=== PATIENT | female | born 1935 | race Caucasian/White ===

== ENCOUNTER 2020-01-22 21:47 | Emergency (ER) | payer MEDICARE, SELFPAY ==
--- NOTE | ~2020-01-22 | CT_ITS ---
EXAMINATION: CT brain wo con EXAM DATE: 01/22/2020 22:55 INDICATION: Dementia. Confusion. Hallucinations. TECHNIQUE: Spiral CT of the head was performed without contrast. Axial, coronal and sagittal images were reviewed. The dose-length product (DLP) for this examination was 605.33 mGy-cm. The exposure w as tailored according to patient size, and iterative reconstruction (ASIR) was used as additional dos e reduction technique. Comparison is made to prior examination from 12/29/2017. FINDINGS: There is no acute intraparenchymal hemorrhage. No evidence of intraparenchymal brain mass lesion. No evidence of acute infarction. Please note that initial head CT has limited sensitivity f or small or acute infarctions. There is mild periventricular and subcortical hypodensity, nonspecific but probably related to small vessel ischemic disease. There is moderate prominence of the sulci a nd ventricles related to cerebral atrophy. There is intracranial carotid arteriosclerosis. There a re no extra-axial collections. There is no mass effect or midline shift. Patient has had bilateral ocular lens surgery. Soft tissue is unremarkable. The visualized sinuses and mastoid air cells are well aerated. IMPRESSION: 1. No acute intracranial findings. 2. Chronic age related findings. Reviewed, dictated and finalized at location A. OM CAR BUILDER
[2020-01-22 22:14] VITALS: BP 165/103; PULSE 72; RESP 18; TEMP 36.3; O2SAT 98
--- NOTE | 2020-01-22 22:19 | ECG_ITS ---
Measurements Intervals [place] Rate: 72 P: 67 NV: 174 QRS: -17 QRSD: 93 T: -9 QT: 379 QTc: 416 Interpretive Statements SINUS RHYTHM INFERIOR INFARCT, AGE INDETERMINATE BASELINE ARTIFACT- I, II, AVR, V3, V5-V6 ABNORMAL ECG Electronically Signed On 01-23-2020 6:46:08 STOCK CONTROL SUPERVISOR by Christophe Higuera D.O.
[2020-01-22 22:29] LABS: Basophils Absolute Auto 0.1 K/mm3 (0.0-0.1); Basophils Percent Auto 1.1 % (0.2-1.2); Eosinophils Absolute Auto 0.3 K/mm3 (0-0.3); Eosinophils Percent Auto 5.8 % (0-4.4); Hematocrit 39.1 % (37.0-47.0); Hemoglobin 12.6 g/dL (12.0-15.0); Immature Granulocyte Absolute 0.01 K/mm3 (0.00-0.031); Immature Granulocyte Percent A 0.2 % (0-0.5); Lymphocytes Absolute Auto 1.42 K/mm3 (0.9-3.2); Lymphocytes Percent Auto 25.5 % (18.3-44.2); Mean Corpuscular HGB Conc 32.2 g/dl (32-36); Mean Corpuscular Hemoglobin 29.1 pg (26-34); Mean Corpuscular Volume 90.3 fl (80-100); Mean Platelet Volume 9.6 fl (7.4-10.4); Monocytes Absolute Auto 0.5 K/mm3 (0.1-0.6); Monocytes Percent Auto 8.6 % (2.6-8.5); Neutrophils Absolute Auto 3.3 K/mm3 (1.3-6.7); Neutrophils Percent Auto 58.8 % (45.5-73.1); Platelet Count Result 261 k/mm3 (150-375); Red Blood Count 4.33 M/mm3 (4.2-5.4); Red Cell Distribution Width 13.3 % (11.5-14.5); White Blood Count 5.6 K/mm3 (4.5-10.0)
--- NOTE | 2020-01-22 22:38 | ED.AMS ---
HPI - Altered Mental Status General Chief Complaint: Altered Mental Status Stated Complaint: dementia Time Seen by Provider: 01/22/20 22:34 Source: patient, family (pt's son) and RN notes reviewed Mode of arrival: ambulatory Limitations: dementia History of Present Illness HPI narrative: Pt is a 84 y/o female with a Hx of dementia, who presents to the ED with c/o altered mental status starting this evening. According to the pt's son, she has a Hx of similar symptoms accompanying a UTI roughly 1 year ago. He notes that his mother began hallucinating this evening, stating that she began hearing things coming from her attic that weren't there. Pt's son also notes that the pt called him stating that her house had been broken into, but states that no one had in fact entered her home. She notes that she is unsure why she is here. Pt does report recent dysuria and chronic bilateral leg pain, but denies any CP, ABD pain, fever, nausea, or vomiting. She states that she hasn't had any recent falls. HPI limited due to pt's dementia. MD complaint: altered mental status Timing confirmed by: family member Severity: similar to previous episodes Context: history of similar presentation Associated symptoms: other (dysuria; bilateral leg pain (chronic); auditory hallucinations (per son); delusions (per son)) Related Data Home Medications Medication Instructions Recorded Confirmed carvedilol 01/22/20 Allergies Allergy/AdvReac Type Severity Reaction Status Date / Time No Known Allergies Allergy Unverified 01/22/20 22:58 Review of Systems Review of Systems: Narrative: ROS limited due to pt's dementia. Constitutional: Constitutional: Denies fever(s) Cardiovascular: Cardiovascular: Denies chest pain Gastrointestinal: Gastrointestinal: Denies abdominal pain, Denies nausea and Denies vomiting Genitourinary: Genitourinary: Reports dysuria Musculoskeletal: Musculoskeletal: Reports other (bilateral leg pain (chronic)) Psychiatric: Psychiatric: Reports hallucinations (auditory hallucinations (per son)) and Reports other (delusions (per son)) [facility] Past Medical History Medical History Anxiety Back pain Dementia Depression Hemorrhoids HTN (hypertension) Spinal stenosis UTI (urinary tract infection) Surgical History Surgical History History of hip replacement rt hip History of hysterectomy Family History Family History (Updated 01/07/16 @ 12:12 by DOCTOR UNKNOWN) Mother Hypertension Family history of heart disease in male family member before age 55 Patient's mother is Father Hypertension Family history of lung cancer Family history of heart disease in male family member before age 55 Patient's father is Family history of malignant neoplasm Sibling Family history of heart disease in male family member before age 55 Patient's sister is Family history of malignant neoplasm Patient's brother is Social History Social History Smoking status: Never smoker Alcohol intake: current Exam Narrative: Exam Narrative: GENERAL: Well-appearing, well-nourished, and in no acute distress. HEAD: Normocephalic, atraumatic EYES: PERRLA and EOMI, conjunctiva clear without discharge THROAT:Mucous membranes moist, Oropharynx normal without erythema, exudate, peritonsillar swelling or fluctuance NECK: Supple, without lymphadenopathy or mass RESPIRATORY: No respiratory distress, Airway patent, Respirations non-labored, Clear to auscultation without rales, rhonchi or wheeze HEART: Regular rate and rhythm. No murmur heard. Normal peripheral pulses. ABDOMEN: Soft, nontender, nondistended, normal active bowel sounds. No masses. No rebound or guarding, No organomegaly. EXTREMITIES: No edema, normal strength with full range of motion.
[2020-01-22 22:42] LABS: Alanine Aminotransferase 8 U/L (4-35); Albumin Level 4.4 g/dL (3.5-5.1); Alkaline Phosphatase 79 U/L (38-126); Aspartate Amino Transferase 18 U/L (14-36); Bilirubin,Total 0.7 mg/dL (0.2-1.3); Blood Urea Nitrogen 17 mg/dL (7-17); Calcium 9.3 mg/dL (8.4-10.2); Carbon Dioxide 22 mmol/L (22-30); Chloride 98 mmol/L (98-107); Estimated CRCL calculation 24 ml/min; Estimated Glomerular Filt Rate 47; Glucose 109 mg/dL (65-105); Potassium 4.2 mmol/L (3.4-5.0); Sodium 135 mmol/L (137-145)
[2020-01-22 23:00] VITALS: BP 214/90; PULSE 71; RESP 19; O2SAT 100
[2020-01-22 23:45] VITALS: BP 199/88; PULSE 71; RESP 21; O2SAT 99
[2020-01-22 23:45] LABS: Add Urine Microscopic? YES; Appearance Urine Clear (Clear); Bilirubin Urine Negative (Negative); Blood Urine 1+ (Negative); Color Urine Yellow (Yellow); Glucose Urine UA Negative (Negative); Ketones Urine Negative (Negative); Leukocyte Esterase Ur Negative LEU/UL (Negative); Mucus Urine Rare /lpf; Nitrate Urine Negative (Negative); Protein Urine Negative (Negative); Specific Grav Ur 1.017 (1.001-1.035); Squamous Epithelial Cell Urine Rare /hpf (Few); Urobilinogen Urine Negative mg/dL (<2.0); WBC Urine 0-3 /hpf
[2020-01-23 00:29] VITALS: BP 206/89; PULSE 79; RESP 21; TEMP 36.4; O2SAT 100
[2020-01-23 01:30] VITALS: BP 153/93; PULSE 83; RESP 15; O2SAT 97
== END 2020-01-23 01:30 | disposition home or self-care (01) ==
PROVIDERS: Emergency Medicine; Emergency Provider General Practice; PCP Internal Medicine
DX: F03.90 Unspecified dementia, unspecified severity, without behavioral disturbance, psychotic disturbance, mood disturbance, and anxiety (principal); F41.9 Anxiety disorder, unspecified; F32.9 Major depressive disorder, single episode, unspecified; I10 Essential (primary) hypertension
CPT/HCPCS: 36415; 51701; 70450; 80053; 81001; 85025; 93005; 99284

== ENCOUNTER 2020-12-16 08:32 | Outpatient (CLI) | payer MEDICARE, SELFPAY ==
--- NOTE | ~2020-12-16 | XR_ITS ---
EXAMINATION: XR UGI w barium swallow EXAM DATE: 12/16/2020 09:29 INDICATION: R11.10 - Vomiting, unspecified. TECHNIQUE: Limited single contrast upper GI examination was performed in standing position with thick barium. Double contrast exam was attempted but patient declined swallowing effervescent crystals. T he DAP for this procedure was 0.7 Gycm2. There is no prior study for comparison. FINDINGS: There is no esophageal stricture, diverticulum or mass identified. Small sliding gastroesop hageal hiatal hernia. The stomach has a normal appearance without evidence of mass lesion, ulceratio n or filling defect. There is normal rugal fold pattern. The duodenum and duodenal sweep are normal in appearance. IMPRESSION: Small sliding gastroesophageal hiatal hernia. Reviewed, dictated and finalized at location A. BEAM FITTER
[2020-12-16 10:14] LABS: Alanine Aminotransferase 7 U/L (4-35); Albumin Level 3.4 g/dL (3.5-5.1); Alkaline Phosphatase 74 U/L (38-126); Anion Gap 2 mmol/L (8-16); Aspartate Amino Transferase 16 U/L (14-36); Bilirubin,Total 0.5 mg/dL (0.2-1.3); Blood Urea Nitrogen 10 mg/dL (7-17); Calcium 8.6 mg/dL (8.4-10.2); Carbon Dioxide 31 mmol/L (22-30); Chloride 103 mmol/L (98-107); Estimated Glomerular Filt Rate 53; Glucose 96 mg/dL (65-105); Potassium 4.1 mmol/L (3.4-5.0); Sodium 136 mmol/L (137-145)
== END 2020-12-16 08:33 | disposition home or self-care (01) ==
PROVIDERS: Family Provider Internal Medicine; PCP Internal Medicine; Visit Provider Internal Medicine
DX: R11.10 Vomiting, unspecified (principal); I10 Essential (primary) hypertension; K21.9 Gastro-esophageal reflux disease without esophagitis
CPT/HCPCS: 36415; 74240; 80053

== ENCOUNTER → 2021-05-13 09:36 | Outpatient (CLI) | payer MEDICARE, SELFPAY ==
--- NOTE | ~2021-05-13 | XR_ITS ---
EXAMINATION: XR chest 2V 05/13/2021 10:54 INDICATION: Essential hypertension PROCEDURE: 2 view chest COMPARISON: Comparison to multiple prior studies sequentially, with oldest reviewed study dated 06/2017. FINDINGS: The lungs are clear. The cardiomediastinal silhouette is within normal limits. There are no pleural effusions. There is no pneumothorax suspected. There are calcified granulomas in the rig ht lower lung zone. IMPRESSION: 1: NO ACUTE CARDIOPULMONARY DISEASE. Reviewed, dictated and finalized at location B.
--- NOTE | ~2021-05-13 | XR_ITS ---
EXAMINATION: XR tibia fibula LT 2V INDICATION: Left knee pain TECHNIQUE: Two views of the left tibia and fibula are obtained. COMPARISON: 05/27/2017 FINDINGS: There is advanced osteoarthritis of the medial compartment of the knee. No fracture is iden tified. Alignment at the ankle appears normal. There is calcified atherosclerosis. IMPRESSION: 1. No acute osseous abnormality. Reviewed, dictated and finalized at location A.
--- NOTE | ~2021-05-13 | XR_ITS ---
EXAMINATION: XR knee LT 3V DATE: 05/13/2021 10:54 INDICATION: Left knee pain TECHNIQUE: Three views of the left knee were obtained. COMPARISON: 05/27/2017 FINDINGS: There is severe osteoarthritis with interval worsening in the medial compartment. Moderate patellofemoral compartment osteoarthritis is present. No erosions are identified. No joint effusion/s ynovitis. There is no fracture. Calcified atherosclerosis is noted. IMPRESSION: 1. Interval worsening of severe osteoarthritis of the medial compartment. Reviewed, dictated and finalized at location A.
== END ==
PROVIDERS: PCP Internal Medicine; Visit Provider Internal Medicine
DX: M17.12 Unilateral primary osteoarthritis, left knee (principal); I10 Essential (primary) hypertension
CPT/HCPCS: 71046; 73562; 73590

== ENCOUNTER 2021-07-06 14:48 | Observation (INO) | payer MEDICARE, SELFPAY ==
--- NOTE | ~2021-07-06 | XR_ITS ---
MODIFIED ESOPHAGRAM HISTORY: Difficulty swallowing TECHNIQUE: Modified barium esophagram was performed by speech pathologist under radiologist fluorosco pic guidance. This was recorded on tape. The exam was reviewed on 07/07/2021 14:25 CDT. The DAP for this procedure was 1.06 Gycm2. Fluoroscopy time is 1.4 minutes. FINDINGS: Lateral projection of the cervical spine demonstrates normal alignment. There is delayed swallow with spillover of all consistencies into the vallecula. Reduced tongue base retraction. No ev idence for penetration or aspiration. IMPRESSION: 1: No evidence for laryngeal penetration or aspiration. 2: Please refer to speech pathologist report for additional detail. Reviewed, dictated and finalized at location A.
--- NOTE | ~2021-07-06 | CT_ITS ---
EXAMINATION: CT brain wo con DATE: 07/06/2021 22:15 INDICATION: Confusion, altered mental status. History of dementia. Patient is now nonverbal which is not normal according to the patient's son. TECHNIQUE: Computed tomography (CT) of the head was performed without intravenous contrast. The mA wa s adjusted according to patient size. Iterative reconstruction technique was employed. Exam dose: 52 9.67 mGy-cm total exam DLP. COMPARISON: 01/22/2020 CT brain FINDINGS: The examination is limited by motion and left hearing aid artifact. No intracranial mass lesion or hemorrhage, midline shift or mass effect or subdural or epidural hemat amish or other acute intracranial finding is noted. There is central and cortical cerebral and cerebellar atrophy. There is nonspecific diminished attenu ation of cerebral white matter, likely due to chronic small vessel ischemic changes. There are promin ent bilateral carotid siphon internal carotid artery calcifications. No fracture or bone destruction of the cranial vault. The mastoid air cells and included paranasal sinuses are unremarkable. IMPRESSION: No acute intracranial finding or significant change since 01/22/2020 is noted Reviewed, dictated and finalized at Location A. Reviewed, dictated and finalized at location A.
--- NOTE | ~2021-07-06 | XR_ITS ---
XR chest 1V portable DATE: 07/06/2021 18:16 INDICATION: Transient alteration of awareness TECHNIQUE: Portable upright AP chest on 07/06/2021 1807 hours COMPARISON: 05/13/2021 PA and lateral chest FINDINGS: Cardiac megaly. Aortic calcification and unfolding. No hilar or mediastinal enlargement is evident on this rightward rotated single portable AP view ches t radiograph. No pulmonary infiltrate or consolidation, pleural effusion or pulmonary vascular congestion or pneumo thorax is evident. Diffuse osteopenia. IMPRESSION: Cardiomegaly, aortic atherosclerosis Diffuse osteopenia No active pulmonary disease Reviewed, dictated and finalized at location A.
--- NOTE | ~2021-07-06 | CT_ITS ---
EXAMINATION: CT abdomen pelvis wo con DATE: 07/07/2021 13:34 INDICATION: Abdominal pain. TECHNIQUE: Computed tomography (CT) of the abdomen and pelvis was performed without intravenous contr ast. Automated exposure control and iterative reconstruction technique were employed. The dose-length product was 978.73 mGy-cm. COMPARISON: CT abdomen and pelvis 12/29/2017 FINDINGS: The visualized portions of the lung bases demonstrate mild atelectasis. No pleural effusion . Cardiomegaly is noted. There are coronary artery calcifications. There are calcifications of aortic valve. No pericardial effusion. Calcifications in the spleen are consistent with old granulomatous d isease. There is diffuse hepatic steatosis. There are gallstones in the gallbladder, which is normal in size. The pancreas, adrenal glands, and kidneys are normal. There is diverticulosis of the colon w ithout evidence of diverticulitis. The appendix is normal. There are no dilated loops of bowel. There are no pathologically enlarged lymph nodes. There is no free intraperitoneal fluid. There is a total right hip arthroplasty. There is severe left hip osteoarthritis. There is severe lumbar spondylosis. IMPRESSION: 1. Cholelithiasis. No evidence of acute cholecystitis. 2. Diffuse hepatic steatosis. Reviewed, dictated and finalized at location B.
--- NOTE | ~2021-07-06 | XR_ITS ---
EXAMINATION: XR hip BI 2V w AP pelvis DATE: 07/07/2021 13:53 INDICATION: Pelvic pain. TECHNIQUE: An anteroposterior view of the pelvis, 2 views of right hip, and 2 views of left hip were obtained. COMPARISON: Pelvis and right knee radiographs 06/27/2007, CT abdomen and pelvis 07/07/2021 FINDINGS: There is a total right hip arthroplasty in near-anatomic alignment. No fracture. No peripro sthetic lucency to suggest loosening or infection. There is severe left hip osteoarthritis. There is severe lumbar spondylosis. IMPRESSION: 1. Total right hip arthroplasty in near-anatomic alignment. 2. Severe left hip osteoarthritis. Reviewed, dictated and finalized at location B.
[2021-07-06 14:50] VITALS: BP 143/69; PULSE 72; RESP 16; TEMP 36.7; O2SAT 95
--- NOTE | 2021-07-06 14:57 | ECG_ITS ---
Measurements Intervals [place] Rate: 65 P: -30 RI: 141 QRS: -3 QRSD: 90 T: 3 QT: 413 QTc: 430 Interpretive Statements SINUS RHYTHM WITH SINUS ARRHYTHMIA BORDERLINE R WAVE PROGRESSION, ANTERIOR LEADS INFERIOR INFARCT, AGE INDETERMINATE BORDERLINE ST ABNORMALITY- HIGH LATERAL LEADS BASELINE ARTIFACT- I, II, AVR ABNORMAL ECG Electronically Signed On 07-06-2021 15:07:34 CDT by Christophe Higuera D.O.
[2021-07-06 15:23] LABS: Basophils Percent Auto 0.5 % (0.2-1.2); Eosinophils Absolute Auto 0.2 K/mm3 (0-0.3); Eosinophils Percent Auto 3.7 % (0-4.4); Hematocrit 37.8 % (37.0-47.0); Hemoglobin 11.9 g/dL (12.0-15.0); Immature Granulocyte Absolute 0.01 K/mm3 (0.00-0.031); Immature Granulocyte Percent A 0.2 % (0-0.5); Lymphocytes Absolute Auto 1.15 K/mm3 (0.9-3.2); Lymphocytes Percent Auto 20.1 % (18.3-44.2); Mean Corpuscular HGB Conc 31.5 g/dl (32-36); Mean Corpuscular Hemoglobin 28.7 pg (26-34); Mean Corpuscular Volume 91.3 fl (80-100); Mean Platelet Volume 10.8 fl (7.4-10.4); Monocytes Absolute Auto 0.8 K/mm3 (0.1-0.6); Monocytes Percent Auto 13.8 % (2.6-8.5); Neutrophils Absolute Auto 3.5 K/mm3 (1.3-6.7); Neutrophils Percent Auto 61.7 % (45.5-73.1); Platelet Count Result 205 k/mm3 (150-375); Red Blood Count 4.14 M/mm3 (4.2-5.4); White Blood Count 5.7 K/mm3 (4.5-10.0)
[2021-07-06 15:35] LABS: Alanine Aminotransferase 10 U/L (4-35); Albumin Level 3.6 g/dL (3.5-5.1); Alkaline Phosphatase 86 U/L (38-126); Anion Gap 5 mmol/L (8-16); Aspartate Amino Transferase 16 U/L (14-36); Bilirubin,Total 0.8 mg/dL (0.2-1.3); Blood Urea Nitrogen 16 mg/dL (7-17); Calcium 9.2 mg/dL (8.4-10.2); Carbon Dioxide 27 mmol/L (22-30); Chloride 104 mmol/L (98-107); Estimated Glomerular Filt Rate 59; Glucose 101 mg/dL (65-110); Sodium 136 mmol/L (137-145)
[2021-07-06 18:39] VITALS: BP 174/105; PULSE 82; RESP 20; TEMP 36.9; O2SAT 98
--- NOTE | 2021-07-06 18:59 | ED.GENADULT ---
HPI - General Adult General Chief complaint: Altered Mental Status Stated complaint: Increased Confusion,not eating,abd pain Time Seen by Provider: 07/06/21 18:01 Source: patient and family History of Present Illness HPI narrative: Patient is a 85 y/o female brought in by son for altered mental status. Son states that patient has been more confused for last 1-2 days. She has history of dementia. There is no known alleviating or exacerbating factor. Patient does not know why she is here and has no complaint. She is poor historian. Son states that he has been out of town for 1 week and she appears worse than before he left. He just came back in town. Patient has some caretakers that helps her at home. Related Data Home Medications Medication Instructions Recorded Confirmed melatonin 10 mg capsule 10 mg PO .QHS cap 08/12/20 07/07/21 buspirone 5 mg TID 07/06/21 07/07/21 lisinopril 10 mg PO DAILY 07/06/21 07/07/21 Azo Cranberry 125 mg PO DAILY 07/07/21 07/07/21 acetaminophen [Tylenol] 650 mg PO TID 07/07/21 07/07/21 trazodone 50 mg PO HS 07/07/21 07/07/21 Allergies Allergy/AdvReac Type Severity Reaction Status Date / Time No Known Allergies Allergy Verified 07/06/21 18:13 Review of Systems Review of Systems: ROS unobtainable: Yes unobtainable due to mental status PMFSH Past Medical History Medical History Anxiety Back pain Depression Hemorrhoids HTN (hypertension) Other chronic pain Overweight (05/24/16) Primary osteoarthritis of both knees Spinal stenosis UTI (urinary tract infection) Surgical History Surgical History History of hip replacement rt hip History of hysterectomy Family History Family History Mother Hypertension Family history of heart disease in male family member before age 55 Patient's mother is Father Hypertension Family history of lung cancer Family history of heart disease in male family member before age 55 Patient's father is Family history of malignant neoplasm Sibling Family history of heart disease in male family member before age 55 Patient's sister is Family history of malignant neoplasm Patient's brother is Social History Social History Smoking status: Never smoker Second hand tobacco smoke exposure: No Alcohol intake: former Substance use: never Gender identity (if verbalized by the patient): Female Spiritual care concerns: No Exam Const: General: no acute distress and well developed Orientation/consciousness: oriented to person and confusion HENMT: Head: normocephalic Ears: external ears normal General nose exam: Normal external nose present Eyes: General: appearance normal, both eyes and all related structures Conjunctivae: conjunctivae normal Neck: Neck: normal visual inspection and full ROM Chest: Chest palpation & inspection: normal inspection of the chest and no tenderness Resp: Effort & Inspection: normal respiratory effort Auscultation: clear to auscultation bilaterally Cardio: Rate: regular rate Rhythm: regular rhythm GI: GI Palp: No abdominal tenderness and Yes Soft to palpation Skin: General skin exam: normal color and turgor normal Neuro: General: oriented to person and confusion Cognition (Neuro): normal cognition Extrem: General: normal to inspection, full ROM and no pedal edema Psych: Appearance: grossly normal Mental Status: mental status grossly normal Affect: normal affect Course Reevaluation(s) Reevaluation #1: Patient care is transferred to Dr. Santos pending CT result and re-evaluation. Date: 07/06/21 Time: 21:22 Vital Signs Vital signs: Vital Signs Temperature 36.7 C 07/06/21 14:50 Pulse Rate 72 07/06/21 14:50 Respiratory Rate 16 07/06/21 14:50 B
[2021-07-06 20:01] LABS: Add Urine Microscopic? YES; Appearance Urine Clear (Clear); Bacteria Urine Trace /hpf; Bilirubin Urine Negative (Negative); Blood Urine Negative (Negative); Color Urine Yellow (Yellow); Glucose Urine UA Negative (Negative); Ketones Urine 1+ mg/dL (Negative); Leukocyte Esterase Ur Negative LEU/UL (Negative); Mucus Urine Heavy /lpf; Nitrate Urine Negative (Negative); Protein Urine 1+ mg/dL (Negative); RBC Urine 0-2 /hpf (0-2); Specific Grav Ur 1.027 (1.001-1.035); Squamous Epithelial Cell Urine Rare /hpf (Few); WBC Urine 0-3 /hpf
--- NOTE | 2021-07-06 20:10 | PC.NURSE ---
Multiple attempts made to assist pt to void without success. Straight cath completed with assist of 3 persons. Son aware of plan of care and orders.
[2021-07-06] MEDS: HALOPERIDOL LACTATE 5 MG/ML VIAL 2 MG IM (20:25)
--- NOTE | 2021-07-06 20:59 | PC.NURSE ---
Multiple attempts to assist pt to stretcher, unable to comprehend. Will sit for brief period then will stand up at bedside. Son with pt assisting with positioning.
[2021-07-06] MEDS: LORazepam INJ (*CRX) 2 MG/ML VIAL 1 MG IM (21:26)
[2021-07-06 23:38] VITALS: BP 161/87; PULSE 67; RESP 17; O2SAT 99
--- NOTE | 2021-07-06 23:39 | PC.NURSE ---
Assumed care of pt, pt is alert on stretcher and upright, pt placed in hospital gown, IV placed. Pt placed on bed alarm. VSS. Discussed POC.
--- NOTE | 2021-07-07 00:12 | PM.IMHP ---
H&P: HPI History of Present Illness Date/Time: 07/07/21 00:12 Chief Complaint: Altered mental status Narrative: This is an 85-year-old female with past medical history significant for dementia generalized anxiety back pain hypertension spinal stenosis degenerative joint disease patient lives at home by herself she has a caregiver that comes from a.m. to 8:00 p.m. in the day and the son comes around to check in on a daily basis. According to son the patient has been doing okay but he has noticed a progressive decline of overall function and worsening of her dementia. He was out of town away for a 1 week and she has not been taking her medications. He brings her in due to altered mental status she is not her usual. Preliminary workup has been essentially nonrevealing. Son states that he would like for her mom to be placed at a alf. Review of Systems Review of Systems: ROS unobtainable: Yes unobtainable due to medical condition (Advanced dementia) PMFSH Past Medical History Medical History Anxiety Back pain Depression Hemorrhoids HTN (hypertension) Other chronic pain Overweight (05/24/16) Primary osteoarthritis of both knees Spinal stenosis UTI (urinary tract infection) Surgical History Surgical History History of hip replacement rt hip History of hysterectomy Family History Family History Mother Hypertension Family history of heart disease in male family member before age 55 Patient's mother is Father Hypertension Family history of lung cancer Family history of heart disease in male family member before age 55 Patient's father is Family history of malignant neoplasm Sibling Family history of heart disease in male family member before age 55 Patient's sister is Family history of malignant neoplasm Patient's brother is Social History Social History Smoking status: Never smoker Second hand tobacco smoke exposure: No Alcohol intake: former Substance use: never Gender identity (if verbalized by the patient): Female Spiritual care concerns: No Meds Home Medications and Allergies Home Medications Medication Instructions Recorded Confirmed Type melatonin 10 mg capsule 10 mg PO .QHS cap 08/12/20 05/27/21 History risperidone 1 mg tablet 1 mg PO DAILY #30 tablet 03/19/21 05/27/21 Rx famotidine 40 mg tablet 40 mg PO DAILY #90 tablet 05/04/21 05/27/21 Rx carvedilol 3.125 mg tablet 3.125 mg PO Q12H #180 tablet 06/21/21 Rx buspirone 5 mg TID 07/06/21 History lisinopril 10 mg PO DAILY 07/06/21 History Azo Cranberry 125 mg PO DAILY 07/07/21 07/07/21 History acetaminophen [Tylenol] 650 mg PO TID 07/07/21 07/07/21 History trazodone 50 mg PO HS 07/07/21 07/07/21 History Allergies Allergy/AdvReac Type Severity Reaction Status Date / Time No Known Allergies Allergy Verified 07/06/21 18:13 Vital Signs Vital Signs - 24 hr 07/06/21 14:50 07/06/21 18:39 07/06/21 23:38 Temperature 98.1 F 98.5 F Pulse Rate 72 82 67 Respiratory Rate 16 20 17 Blood Pressure 143/69 H 174/105 H 161/87 H Pulse Oximetry 95 98 99 Exam Narrative: Laying in [facility] Const: General: comfortable, no acute distress, well developed, alert and tired appearing Nutritional Appearance: average body habitus HENMT: Head: normal to inspection, normocephalic and atraumatic Ears: hearing grossly normal bilaterally General nose exam: Normal external nose present Face and sinus: normal facial exam Mouth: Yes Normal oral and palatal mucosa present Eyes: General: appearance normal, both eyes and all related structures Alignment and Position: alignment normal Sclera: sclerae normal Pupils: Equal, round and reactive pupils present EOM: EOMs intact bilaterally Neck: N
[2021-07-07 00:30] VITALS: BP 148/74; BP 175/88; PULSE 61; PULSE 79; RESP 17; RESP 21; TEMP 36.5; O2SAT 97; O2SAT 99; BMI 27.6
--- NOTE | 2021-07-07 00:36 | ADMGEN ---
This patient, Annabelle Richards, was admitted to [facility] Surg Room 305-02. Patient/family oriented to hospital policies and general routines including ID bracelet, bed and alarms, visiting hours, pain management, procedures, bathroom and other care routines, personal items, smoking policy, room service/diet, and visiting hours. Information on how to activate the Rapid Response Team has been discussed. Patient/Family are encouraged to report perceived risks to care and to ask questions if they do not understand what they are told or what they should do.
[2021-07-07 05:16] VITALS: BP 160/92; PULSE 71; RESP 17; TEMP 36.4; O2SAT 90
[2021-07-07] MEDS: SODIUM CHLORIDE 0.9% IV 1,000 ML 125 ML IV CONT (06:00)
[2021-07-07] MEDS: FAMOTIDINE 20 MG TABLET 40 MG PO (09:26)
[2021-07-07] MEDS: OLANZapine 10 MG INJ VIAL 2.5 MG IM ×2 (10:43→21:11)
[2021-07-07 11:43] VITALS: BMI 27.6
--- NOTE | 2021-07-07 11:51 | PM.IMPN ---
Progress Note: A&P Assessment and Plan (1) Late onset Alzheimer's disease with behavioral disturbance: Code(s): G30.1 - Alzheimer's disease with late onset; F02.81 - Dementia in other diseases classified elsewhere with behavioral disturbance Status: Acute Assessment and Plan: Patient was not taking her medications this morning and had to receive Zyprexa IM (she also had Haldol and Ativan last night in the ER) -will continue with daily home risperidone, trazodone and BuSpar if she agrees to take these medications -decreased appetite likely due to dementia but will do abdominal and pelvis CT since she also has abdominal pain according to son. Speech therapy and modified barium swallow ordered -she does not a psychiatrist. He says that the were spared all was for hallucinations which have resolved. No new medications (2) Chronic GERD: Code(s): K21.9 - Gastro-esophageal reflux disease without esophagitis Status: Acute Assessment and Plan: Due to abdominal pain, will switch Pepcid to Protonix (3) Chronic low back pain: Code(s): M54.5 - Low back pain; G89.29 - Other chronic pain Status: Acute Assessment and Plan: Tylenol as needed (4) Spinal stenosis: Code(s): M48.00 - Spinal stenosis, site unspecified Status: Acute Assessment and Plan: Chronic -5/5 strength in the lower extremities -family states that the patient has been walking but is slower than normal. -no worrisome exam findings (5) HTN (hypertension): Code(s): I10 - Essential (primary) hypertension Status: Acute Assessment and Plan: Last blood pressure 160/92 -could be due to agitation, increase lisinopril by 10 mg to make 20 mg daily. Continue home carvedilol -hydralazine p.r.n. (6) Generalized weakness: Code(s): R53.1 - Weakness Status: Acute Assessment and Plan: The son states the patient is walking slower and getting weaker. -order PT and OT (7) Abdominal pain: Code(s): R10.9 - Unspecified abdominal pain Status: Acute Assessment and Plan: As stated above, son states the patient has been having abdominal pain -will order CT of the abdomen pelvis (8) Decreased appetite: Code(s): R63.0 - Anorexia Status: Acute Assessment and Plan: As above, CT ordered as well as a swallow study -likely due to advancing dementia (9) Murmur: Code(s): R01.1 - Cardiac murmur, unspecified Status: Acute Assessment and Plan: Noted on exam -no history of syncope -no signs of heart failure -follow-up with primary care physician Time Spent With Patient Time with patient: 25 - 35 minutes Subjective Date/time seen: 07/07/21 11:51 Interval history: Pt is a 85-year-old female here for worsening confusion with dementia. Patient was seen today and was calm but just had received Zyprexa. She was eating her breakfast without issue with the nurse aide at bedside. She had no complaints of pain whatsoever. I called her son and spoke with him about what brought her into the hospital. He states that his mom has been quite different in the last week. He has noticed that she is more confused, repeats phrases, and has a decreased appetite. She seems to be selective with food and only eats things like [place] hamburgers, ice cream, and muffins. Everything else he thinks she does not swallow very well. She has been on risperidone for a while and has not had any medication changes recently. The risperidone was for hallucinations which has resolved. He says that she has to be more active and he has to walk to the bathroom and back but now walks more slowly and has been more incontinent lately. He is unsure if this is the dementia or if there is something going on. She also mentions that she has abdominal pain quite often. Review of Systems Review of Systems: All systems
[2021-07-07 14:00] VITALS: BP 153/42; PULSE 55; RESP 16; TEMP 36.7; O2SAT 94
[2021-07-07] MEDS: ENOXAPARIN 40 MG/0.4 ML SYRINGE SUB-Q (18:20)
[2021-07-07] MEDS: hydrALAZINE HCL 20 MG/ML VIAL 10 MG IV PUSH (20:20)
[2021-07-07 21:04] VITALS: PULSE 65
[2021-07-07 21:32] VITALS: BP 151/88; PULSE 64; RESP 18; TEMP 36.1; O2SAT 98
[2021-07-08] MEDS: hydrALAZINE HCL 20 MG/ML VIAL 10 MG IV PUSH (05:02)
[2021-07-08 05:32] VITALS: BP 198/80; PULSE 80; RESP 18; TEMP 36.1; O2SAT 100
[2021-07-08 07:14] LABS: Hematocrit 37.9 % (37.0-47.0); Hemoglobin 12.5 g/dL (12.0-15.0); Mean Corpuscular Hemoglobin 29.3 pg (26-34); Mean Corpuscular Volume 88.8 fl (80-100); Platelet Count Result 221 k/mm3 (150-375); Red Blood Count 4.27 M/mm3 (4.2-5.4); Red Cell Distribution Width 13.9 % (11.5-14.5); White Blood Count 5.8 K/mm3 (4.5-10.0)
[2021-07-08 07:27] LABS: Anion Gap 10 mmol/L (8-16); Blood Urea Nitrogen 13 mg/dL (7-17); CRP 0.7 mg/dL (<1.0); Calcium 9.4 mg/dL (8.4-10.2); Carbon Dioxide 22 mmol/L (22-30); Chloride 106 mmol/L (98-107); Estimated CRCL calculation 45 ml/min; Estimated Glomerular Filt Rate > 60; Glucose 90 mg/dL (65-110); Potassium 3.4 mmol/L (3.4-5.0); Sodium 138 mmol/L (137-145)
[2021-07-08] MEDS: cloNIDine 0.1 MG/24 HR PATCH 1 PATCH TRANSDERM (08:34)
[2021-07-08] MEDS: busPIRone HCL 5 MG TABLET BY MOUTH (10:55)
[2021-07-08] MEDS: ACETAMINOPHEN 325 MG TABLET 650 MG PO (10:55)
[2021-07-08 10:56] VITALS: PULSE 80
[2021-07-08] MEDS: carvediloL 3.125 MG TABLET PO ×2 (10:56→23:01)
[2021-07-08] MEDS: lisinopriL 20 MG TABLET PO (10:56)
[2021-07-08] MEDS: ENOXAPARIN 40 MG/0.4 ML SYRINGE SUB-Q (10:57)
[2021-07-08] MEDS: risperiDONE 1 MG TABLET PO (10:57)
[2021-07-08 12:49] LABS: EDCOVIDSCREEN Positive (Negative)
--- NOTE | 2021-07-08 13:17 | PM.IMPN ---
Progress Note: A&P Assessment and Plan (1) Late onset Alzheimer's disease with behavioral disturbance: Code(s): G30.1 - Alzheimer's disease with late onset; F02.81 - Dementia in other diseases classified elsewhere with behavioral disturbance Status: Acute Assessment and Plan: Patient was not taking her medications this morning and had to receive Zyprexa IM (she also had Haldol and Ativan in the ER) -She refused her medications earlier today but once the son was here she did take them. -will continue with daily home risperidone, trazodone and BuSpar if she agrees to take these medications -decreased appetite likely due to dementia. Speech study and abdominal/pelv CT shows no significant abnormalities -she does not see a psychiatrist. He says that the risperidone was for hallucinations which have resolved. No new medications -I do believe patient would benefit from geriatric psychiatric care. Unfortunately, her COVID test is positive and we will have to await the PCR test and she will not be discharged to this facility at this time. Her CRP is normal, white blood cell count is normal as is her chest x-ray. If this is a true positive, it appears to be asymptomatic case. With that being said, it could possibly be causing more behavioral issues and confusion. Will monitor (2) Chronic GERD: Code(s): K21.9 - Gastro-esophageal reflux disease without esophagitis Status: Acute Assessment and Plan: continue protonix (3) Chronic low back pain: Code(s): M54.5 - Low back pain; G89.29 - Other chronic pain Status: Acute Assessment and Plan: Tylenol as needed (4) Spinal stenosis: Code(s): M48.00 - Spinal stenosis, site unspecified Status: Acute Assessment and Plan: Chronic -5/5 strength in the lower extremities -family states that the patient has been walking but is slower than normal. -no worrisome exam findings (5) HTN (hypertension): Code(s): I10 - Essential (primary) hypertension Status: Acute Assessment and Plan: Last blood pressure 198/80 but improved on recheck which hasn't been documented yet -clonidine patch started -continue lisinopril 20 mg daily and home carvedilol -hydralazine p.r.n. (6) Generalized weakness: Code(s): R53.1 - Weakness Status: Acute Assessment and Plan: The son states the patient is walking slower and getting weaker. -order PT and OT (7) Abdominal pain: Code(s): R10.9 - Unspecified abdominal pain Status: Acute Assessment and Plan: resolved (8) Decreased appetite: Code(s): R63.0 - Anorexia Status: Acute Assessment and Plan: As above, CT ordered as well as a swallow study -likely due to advancing dementia (9) Murmur: Code(s): R01.1 - Cardiac murmur, unspecified Status: Acute Assessment and Plan: Noted on exam -no history of syncope -no signs of heart failure -follow-up with primary care physician (10) Lab test positive for detection of COVID-19 virus: Code(s): U07.1 - COVID-19 Status: Acute Assessment and Plan: Rapid COVID test is positive -await PCR - Her CRP is normal, white blood cell count is normal as is her chest x-ray. -If this is a true positive, it appears to be asymptomatic case. -monitor Subjective Date/time seen: 07/08/21 13:17 Interval history: Pt is a 85-year-old female here for worsening confusion with dementia. Patient was seen today with son at bedside. Pt was not cooperative this morning but did do better once her son was here. She ripped out her IVs and refused meds prior to this. Son spoke to her caregivers who states the pt has been refusing her medications lately as well. Pt confused but had no complaints. No CP, abdominal pain, or SOB. I called the son back after the inital exam and he did not answer. It is unknown if she has had
[2021-07-08 14:00] VITALS: BP 144/60; PULSE 99; RESP 16; TEMP 36.4; O2SAT 98
[2021-07-08] MEDS: OLANZapine 10 MG INJ VIAL 2.5 MG IM ×2 (16:20→23:57)
[2021-07-08 21:28] VITALS: BP 161/84; PULSE 75; RESP 18; TEMP 36.6; O2SAT 95
[2021-07-08 21:54] LABS: SARS-CoV-2 RNA PCR Negative (Negative)
[2021-07-08 23:01] VITALS: PULSE 95
[2021-07-08] MEDS: MELATONIN 5 MG TABLET 10 MG PO (23:01)
[2021-07-08] MEDS: traZODone HCL 50 MG TABLET PO (23:04)
--- NOTE | 2021-07-08 23:04 | PC.NURSE ---
was able to pass 2100 meds crushed and in pudding
[2021-07-09 05:53] VITALS: BP 168/68; PULSE 91; RESP 18; TEMP 36.4; O2SAT 96
[2021-07-09] MEDS: ENOXAPARIN 40 MG/0.4 ML SYRINGE SUB-Q (10:02)
[2021-07-09] MEDS: busPIRone HCL 5 MG TABLET BY MOUTH ×2 (10:02→12:33)
[2021-07-09] MEDS: ACETAMINOPHEN 325 MG TABLET 650 MG PO ×2 (10:02→12:33)
[2021-07-09] MEDS: lisinopriL 20 MG TABLET PO (10:02)
[2021-07-09 10:03] VITALS: PULSE 78
[2021-07-09] MEDS: carvediloL 3.125 MG TABLET PO (10:03)
[2021-07-09] MEDS: risperiDONE 1 MG TABLET PO (10:04)
--- NOTE | 2021-07-09 11:49 | PM.DS ---
DS: Admitting Diagnosis Admitting Diagnosis AMS DS: Discharge Diagnosis Discharge Diagnosis (1) Late onset Alzheimer's disease with behavioral disturbance: Code(s): G30.1 - Alzheimer's disease with late onset; F02.81 - Dementia in other diseases classified elsewhere with behavioral disturbance Status: Acute Assessment and Plan: Patient had been refusing medications at home [facility] required Zyprexa IM (she also had Haldol and Ativan in the ER) -will continue with daily home risperidone, trazodone and BuSpar if she agrees to take these medications -Due to her behavior, I do believe she would benefit from [facility] for evaluation to keep the patient safe -decreased appetite likely due to dementia. Speech study and abdominal/pelv CT shows no significant abnormalities -she does not see a psychiatrist. Son says that the risperidone was for hallucinations which have resolved. No new medications -I do believe patient would benefit from geriatric psychiatric care. Unfortunately, her rapid COVID test was (2) Chronic GERD: Code(s): K21.9 - Gastro-esophageal reflux disease without esophagitis Status: Acute Assessment and Plan: continue protonix (3) Chronic low back pain: Code(s): M54.5 - Low back pain; G89.29 - Other chronic pain Status: Acute Assessment and Plan: Tylenol as needed (4) Spinal stenosis: Code(s): M48.00 - Spinal stenosis, site unspecified Status: Acute Assessment and Plan: Chronic -5/5 strength in the lower extremities -family states that the patient has been walking but is slower than normal. -no worrisome exam findings (5) HTN (hypertension): Code(s): I10 - Essential (primary) hypertension Status: Acute Assessment and Plan: Last blood pressure 113/45 but was elevated higher up to 198/80 -clonidine patch started -continue lisinopril 20 mg daily and home carvedilol (6) Generalized weakness: Code(s): R53.1 - Weakness Status: Acute Assessment and Plan: The son states the patient is walking slower and getting weaker. -PT and OT after psych eval if she can cooperate (7) Abdominal pain: Code(s): R10.9 - Unspecified abdominal pain Status: Acute Assessment and Plan: resolved (8) Decreased appetite: Code(s): R63.0 - Anorexia Status: Acute Assessment and Plan: As above, CT ordered as well as a swallow study -likely due to advancing dementia (9) Murmur: Code(s): R01.1 - Cardiac murmur, unspecified Status: Acute Assessment and Plan: Noted on exam -no history of syncope -no signs of heart failure -follow-up with primary care physician, discussed with son (10) Lab test positive for detection of COVID-19 virus: Code(s): U07.1 - COVID-19 Status: Acute Assessment and Plan: Rapid COVID test is positive , PCR negative - Her CRP is normal, white blood cell count is normal as is her chest x-ray. Likely false negative DS: Summary Hospital Course Hospital Course: Date of service July 09, 2021 Patient is an 85-year-old female with history of dementia who presented emergency room for altered mental status and behavioral disturbances after her son was away for 1 week. In the ER her vitals were temperature 36.7? C, pulse 72, respiratory rate 16, blood pressure 143/69, pulse ox 95 on room air. CBC and BMP did not show any etiology for the patient's symptoms. Hemoglobin slightly low at 11.9. UA negative for UTI. Head CT showed no acute findings. Chest x-ray negative. Patient was admitted to the hospitalist service. She had to receive Haldol, Zyprexa and was not cooperating. Son at bedside states that she has been having occasional abdominal pain and dysphagia so speech evaluation was performed which was normal. CT of the abdomen pelvis did not show any acute
[2021-07-09 14:00] VITALS: BP 113/45; PULSE 73; RESP 16; TEMP 35.7; O2SAT 99
== END 2021-07-09 17:20 ==
LOC: ANHED 18:32 → ANH3MEDSUR 07-07 00:11
PROVIDERS: Physician Assistant; Admitting Provider Internal Medicine; Emergency Provider Emergency Medicine; PCP Internal Medicine; Visit Provider Family Medicine
DX: G30.1 Alzheimer's disease with late onset (principal); F02.81 Dementia in other diseases classified elsewhere, unspecified severity, with behavioral disturbance; I10 Essential (primary) hypertension; K21.9 Gastro-esophageal reflux disease without esophagitis; R53.1 Weakness; R01.1 Cardiac murmur, unspecified; K76.0 Fatty (change of) liver, not elsewhere classified; K80.20 Calculus of gallbladder without cholecystitis without obstruction; M16.12 Unilateral primary osteoarthritis, left hip; M48.00 Spinal stenosis, site unspecified; R63.0 Anorexia; Z20.822 Contact with and (suspected) exposure to COVID-19
CPT/HCPCS: 36415; 70450; 71045; 73521; 74176; 80048; 80053; 81001; 84443; 85025; 85027; 86140; 87426; 92611; 93005; 96372; 96374; 96376; 97162; 97165; 99285; A9270; C9113; C9803; G0378; J0360; J1630; J1650; J2060; J7030; U0003; U0005

== ENCOUNTER 2022-11-10 05:17 | Observation (INO) | payer MEDICARE, MEDICAID, SELFPAY ==
[2022-11-10 05:25] VITALS: BP 161/73; PULSE 97; RESP 16; TEMP 36.6; O2SAT 96
--- NOTE | 2022-11-10 05:51 | PC.NURSE ---
Call [place] [id number] not able to reach staff at this time.
[2022-11-10] MEDS: SODIUM CHLORIDE 0.9% IV 1,000 ML 999 ML IV CONT (05:52)
[2022-11-10 05:59] LABS: Basophils Percent Auto 0.1 % (0.2-1.2); Eosinophils Absolute Auto 0.2 K/mm3 (0-0.3); Eosinophils Percent Auto 1.9 % (0-4.4); Hematocrit 35.5 % (37.0-47.0); Hemoglobin 11.1 g/dL (12.0-15.0); Immature Granulocyte Absolute 0.02 K/mm3 (0.00-0.031); Immature Granulocyte Percent A 0.3 % (0-0.5); Lymphocytes Absolute Auto 0.36 K/mm3 (0.9-3.2); Lymphocytes Percent Auto 4.5 % (18.3-44.2); Mean Corpuscular HGB Conc 31.3 g/dl (32-36); Mean Corpuscular Hemoglobin 28.5 pg (26-34); Mean Platelet Volume 10.7 fl (7.4-10.4); Monocytes Absolute Auto 0.5 K/mm3 (0.1-0.6); Monocytes Percent Auto 6.1 % (2.6-8.5); Neutrophils Absolute Auto 6.9 K/mm3 (1.3-6.7); Neutrophils Percent Auto 87.1 % (45.5-73.1); Platelet Count Result 198 k/mm3 (150-375); White Blood Count 7.9 K/mm3 (4.5-10.0)
[2022-11-10 06:10] LABS: Alanine Aminotransferase 17 U/L (6-35); Albumin Level 4.3 g/dL (3.5-5.1); Alkaline Phosphatase 92 U/L (38-126); Anion Gap 6 mmol/L (8-16); Aspartate Amino Transferase 23 U/L (14-36); Bilirubin,Total 0.7 mg/dL (0.2-1.3); Blood Urea Nitrogen 21 mg/dL (7-17); Calcium 8.9 mg/dL (8.4-10.2); Carbon Dioxide 27 mmol/L (22-30); Chloride 106 mmol/L (98-107); Estimated Glomerular Filt Rate 52; Glucose 109 mg/dL (65-110); Potassium 4.6 mmol/L (3.4-5.0); Sodium 139 mmol/L (137-145)
--- NOTE | 2022-11-10 06:18 | ED.NAVMDI ---
HPI - Nausea/Vomiting/Diarrhea General Chief complaint: Nausea/Vomiting/Diarrhea Stated complaint: VOMITING AND DIARRHEA Time Seen by Provider: 11/10/22 06:18 History of Present Illness HPI Narrative: 86 years old white female came from retirement by ambulance with 2 episodes of loose stool over 2 hours prior to arrival to the emergency room Associated with one vomiting patient is asymptomatic. . History of dementia. Related Data Home Medications Medication Instructions Recorded Confirmed melatonin 10 mg capsule 10 mg PO .QHS 08/12/20 07/07/21 buspirone 5 mg tablet 5 mg TID 07/06/21 07/07/21 Azo Cranberry 125 mg PO DAILY 07/07/21 07/07/21 acetaminophen 325 mg tablet 650 mg PO TID 07/07/21 07/07/21 (Tylenol) trazodone 50 mg tablet 50 mg PO HS 07/07/21 07/07/21 Allergies Allergy/AdvReac Type Severity Reaction Status Date / Time No Known Allergies Allergy Verified 07/06/21 18:13 Review of Systems Review of Systems: ROS unobtainable: Yes unobtainable due to mental status PMFSH Past Medical History Medical History Anxiety Back pain Depression Hemorrhoids HTN (hypertension) Other chronic pain Overweight (05/24/16) Primary osteoarthritis of both knees Spinal stenosis UTI (urinary tract infection) Surgical History Surgical History History of hip replacement rt hip History of hysterectomy Family History Family History Mother Hypertension Family history of heart disease in male family member before age 55 Patient's mother is Father Hypertension Family history of lung cancer Family history of heart disease in male family member before age 55 Patient's father is Family history of malignant neoplasm Sibling Family history of heart disease in male family member before age 55 Patient's sister is Family history of malignant neoplasm Patient's brother is Social History Social History Smoking status: Never smoker Second hand tobacco smoke exposure: No Alcohol intake: former Substance use: never Gender identity (if verbalized by the patient): Female Spiritual care concerns: No Exam Narrative: General appearance: Well-developed, well-nourished, looks comfortable, not in any pain or distress, smiling Skin: Normal color Head: Normocephalic, nontraumatic Eyes: Clear conjunctiva ENT: Oropharynx normal, ears normal, nose normal Neck: Supple, nontender Chest and respiratory: Airway patent, no respiratory distress, no accessory muscle use Heart: Regular rate/rhythm Abdomen: Soft, nontender, no organomegaly, quiet bowel sounds Vascular: Normal peripheral pulses, normal capillary refill. Musculoskeletal: Normal range of motion, nontender back Neurologic: Alert and disoriented x3 Course Course Emergency Course: Patient had soiled close from the diarrhea on arrival to the emergency room no blood contents, no offensive odor. Patient did not have any diarrhea since arrival to the emergency room until the time of discharge, patient vomited large amount of vomitus once during the emergency room visit. Vital Signs Vital signs: Vital Signs Temperature 36.6 C 11/10/22 05:25 Pulse Rate 97 11/10/22 05:25 Respiratory Rate 16 11/10/22 05:25 Blood Pressure 161/73 H 11/10/22 05:25 Pulse Oximetry 96 11/10/22 05:25 Oxygen Delivery Room Air 11/10/22 05:25 Temperature 36.6 C 11/10/22 05:25 Pulse Rate 97 11/10/22 05:25 Respiratory Rate 16
--- NOTE | 2022-11-10 06:47 | PC.NURSE ---
noted patient had emesis times one no other complaints
--- NOTE | 2022-11-10 06:53 | PC.NURSE ---
noted patient removed iv per self patient states she doesnt like it new iv placed coban wrapped around to secure
[2022-11-10 07:20] LABS: Influenza A QL RT-PCR Negative (Negative); Influenza B QL RT-PCR Negative (Negative); SARS-CoV-2 RNA PCR Negative
[2022-11-10 10:02] VITALS: TEMP 35.6
--- NOTE | 2022-11-10 11:11 | PC.NURSE ---
full admission history could not be finished due to dementia. Medications from [facility] were entered.
--- NOTE | 2022-11-10 11:38 | PC.NURSE ---
This patient, Annabelle Richards, was admitted to 3 Med Surg Room 304-01 on 11/10/22 @ 1135. Patient/family oriented to hospital policies and general routines including ID bracelet, bed and alarms, visiting hours, pain management, procedures, bathroom and other care routines, personal items, smoking policy, room service/diet, and visiting hours. Information on how to activate the Rapid Response Team has been discussed. Patient/Family are encouraged to report perceived risks to care and to ask questions if they do not understand what they are told or what they should do.
[2022-11-10 11:45] VITALS: BP 160/62; PULSE 59; RESP 18; TEMP 36.1; O2SAT 99
[2022-11-10] MEDS: SODIUM CHLORIDE 0.9% IV 1,000 ML 125 ML IV CONT (13:10)
--- NOTE | 2022-11-10 13:20 | PM.IMHP ---
H&P: HPI History of Present Illness Date/Time: 11/10/22 13:20 Chief Complaint: Diahrrea and vomiting Narrative: EDHPI Narrative: 86 years old white female [facility] with 2 episodes of loose stool over 2 hours prior to arrival to the emergency room? Associated with one vomiting patient is asymptomatic.? .? History of dementia. unfortunately patient is quite somnolent and unable to provide any review of symptoms or history, will gently hydrate the patient with IVF, monitor patient kidney function as patient is slightly dehydrated, will encourage PO intake, will monitor patient electrolytes and further recommendation to follow patient is admitted as observation status Review of Systems Review of Systems: ROS unobtainable: Yes unobtainable due to mental status PMFSH Past Medical History Medical History Anxiety Back pain Depression Hemorrhoids HTN (hypertension) Other chronic pain Overweight (05/24/16) Primary osteoarthritis of both knees Spinal stenosis UTI (urinary tract infection) Surgical History Surgical History History of hip replacement rt hip History of hysterectomy Family History Family History Mother Hypertension Family history of heart disease in male family member before age 55 Patient's mother is Father Hypertension Family history of lung cancer Family history of heart disease in male family member before age 55 Patient's father is Family history of malignant neoplasm Sibling Family history of heart disease in male family member before age 55 Patient's sister is Family history of malignant neoplasm Patient's brother is Social History Social History Smoking status: Never smoker Second hand tobacco smoke exposure: No Alcohol intake: never Substance use: never Gender identity (if verbalized by the patient): Female Spiritual care concerns: No Meds Home Medications and Allergies Home Medications Medication Instructions Recorded Confirmed Type melatonin 10 mg capsule 3 mg PO QHS 08/12/20 11/10/22 History famotidine 40 mg tablet (Pepcid) 40 mg PO DAILY #90 tabs 05/04/21 11/10/22 Rx buspirone 5 mg tablet 15 mg TID 07/06/21 11/10/22 History acetaminophen 325 mg tablet 650 mg PO QID 07/07/21 11/10/22 History (Tylenol) bisacodyl 10 mg rectal suppository 10 mg RECTAL DAILY PRN Constipation 11/10/22 11/10/22 History carvedilol 3.125 mg tablet 3.125 mg PO TID 11/10/22 11/10/22 History cholecalciferol (vitamin D3) 125 125 mcg PO DAILY 11/10/22 11/10/22 History mcg (5,000 unit) tablet citalopram 10 mg tablet 10 mg PO DAILY 11/10/22 11/10/22 History diclofenac sodium 1 % topical gel 2 g topical QID 11/10/22 11/10/22 History lisinopril 20 mg tablet 10 mg PO DAILY 11/10/22 11/10/22 History magnesium citrate (Citroma oral 300 ml PO DAILY PRN Constipation 11/10/22 11/10/22 History solution) magnesium hydroxide 400 mg/5 mL 400 mg PO DAILY PRN Constipation 11/10/22 11/10/22 History oral suspension (Milk of Magnesia) risperidone 0.5 mg tablet 0.5 mg PO HS 11/10/22 11/10/22 History (Risperdal) risperidone 1 mg tablet (Risperdal) 0.25 mg PO HS 11/10/22 11/10/22 History sodium phosphates 19 gram-7 118 ml RECTAL ONCE 11/10/22 11/10/22 History gram/118 mL enema (Fleet Enema) Allergies Allergy/AdvReac Type Severity Reaction Status Date / Time No Known Allergies Allergy Verified 11/10/22 10:01 Vital Signs Vital Signs - 24 hr 11/10/22 05:25 11/10/22 10:02 11/10/22 11:45 Temperature 97.9 F 96.1 F L 97.0 F L Pulse Rate 97 59 L Respiratory Rate 16 18 Blood Pressure 161/73 H 160/62 H Pulse Oximetry 96 99 Oxygen Delivery Room Air Exam Narrative: elderly frail Patient is comfort
[2022-11-10 17:57] VITALS: PULSE 80
[2022-11-10] MEDS: busPIRone HCL 5 MG TABLET 15 MG BY MOUTH (17:57)
[2022-11-10] MEDS: carvediloL 3.125 MG TABLET PO (17:57)
[2022-11-10] MEDS: DICLOFENAC SODIUM 1% 100 GM GEL (*BKC) 1 APPLIC TOPICAL ×2 (18:04→20:46)
--- NOTE | 2022-11-10 18:17 | PC.NURSE ---
Patient confused and pulled out IV access around 1700. Called MD (Dr. Horton). Notified him that patient is eating and drinking. OK to discontinue IV fluids and advance her diet. Leave IV access out unless patient begins to have N/V or not eating/drinking.
[2022-11-10 20:00] VITALS: PULSE 80; RESP 18; O2SAT 99
[2022-11-10] MEDS: MELATONIN 3 MG TABLET PO (20:46)
[2022-11-10] MEDS: risperiDONE 0.25 MG TABLET PO (20:46)
[2022-11-10] MEDS: risperiDONE 0.5 MG TABLET PO (20:46)
[2022-11-10 23:36] VITALS: BP 120/41; PULSE 64; RESP 18; TEMP 35.9; O2SAT 98
[2022-11-11] VITALS (8 sets, daily range): BP systolic 108–178; BP diastolic 48–96; PULSE 62–71; RESP 16–20; TEMP 36.3–36.6; O2SAT 94–100
[2022-11-11 07:43] LABS: Anion Gap 5 mmol/L (8-16); Blood Urea Nitrogen 20 mg/dL (7-17); Calcium 8.3 mg/dL (8.4-10.2); Carbon Dioxide 28 mmol/L (22-30); Chloride 106 mmol/L (98-107); Estimated Glomerular Filt Rate 52; Glucose 94 mg/dL (65-110); Potassium 4.1 mmol/L (3.4-5.0); Sodium 139 mmol/L (137-145)
[2022-11-11] MEDS: busPIRone HCL 5 MG TABLET 15 MG BY MOUTH ×3 (08:52→17:33)
[2022-11-11] MEDS: FAMOTIDINE 20 MG TABLET 40 MG PO (08:52)
[2022-11-11] MEDS: CITALOPRAM HYDROBROMIDE 10 MG TABLET PO (08:52)
[2022-11-11] MEDS: carvediloL 3.125 MG TABLET PO ×3 (08:52→17:33)
[2022-11-11] MEDS: lisinopriL 10 MG TABLET PO (08:53)
[2022-11-11] MEDS: CHOLECALCIFEROL 1,000 UNITS TABLET 5000 UNITS PO (08:53)
[2022-11-11] MEDS: DICLOFENAC SODIUM 1% 100 GM GEL (*BKC) 1 APPLIC TOPICAL ×4 (08:53→20:12)
[2022-11-11] MEDS: ACETAMINOPHEN 325 MG TABLET 650 MG PO (08:59)
--- NOTE | 2022-11-11 15:12 | PM.IMPN ---
Progress Note: A&P Assessment and Plan (1) Gastroenteritis: Code(s): K52.9 - Noninfective gastroenteritis and colitis, unspecified Status: Acute Assessment and Plan: EDHPI Narrative: 86 years old white female came [place] [facility] by ambulance with 2 episodes of loose stool over 2 hours prior to arrival to the emergency room? Associated with one vomiting patient is asymptomatic.? .? History of dementia. unfortunately patient is quite somnolent and unable to provide any review of symptoms or history, will gently hydrate the patient with IVF, monitor patient kidney function as patient is slightly dehydrated, will encourage PO intake, will monitor patient electrolytes and further recommendation to follow. 11/11/2022 interval history: today patient is little more awake, stats she is hungry, unable to provider detail review of symptoms, still have clear loose BM most likely viral gastroenteritis, will continue to gently hydrate the patient encourage p.o. intake and monitor, will have a PT OT evaluate the and further recommendation to follow. (2) Decreased appetite: Code(s): R63.0 - Anorexia Status: Acute Assessment and Plan: most likely secondary to dementia will increase patient to take p.o. (3) Generalized weakness: Code(s): R53.1 - Weakness Status: Acute Assessment and Plan: most likely secondary dehydration with vomiting and diarrhea will encourage p.o. intake have a PT OT evaluate the patient (4) Dementia: Qualifiers: Dementia behavioral disturbance: without behavioral disturbance Dementia type: unspecified type Qualified Code(s): F03.90 - Unspecified dementia without behavioral disturbance Code(s): F03.90 - Unspecified dementia, unspecified severity, without behavioral disturbance, psychotic disturbance, mood disturbance, and anxiety Status: Acute Assessment and Plan: patient remains clinically stable Subjective Date/time seen: 11/11/22 15:12 EDHPI Narrative: 86 years old white female came from [facility] by ambulance with 2 episodes of loose stool over 2 hours prior to arrival to the emergency room? Associated with one vomiting patient is asymptomatic.? .? History of dementia. unfortunately patient is quite somnolent and unable to provide any review of symptoms or history, will gently hydrate the patient with IVF, monitor patient kidney function as patient is slightly dehydrated, will encourage PO intake, will monitor patient electrolytes and further recommendation to follow. 11/11/2022 interval history: today patient is little more awake, stats she is hungry, unable to provider detail review of symptoms, still have clear loose BM most likely viral gastroenteritis, will continue to gently hydrate the patient encourage p.o. intake and monitor, will have a PT OT evaluate the and further recommendation to follow. Review of Systems Review of Systems: ROS unobtainable: Yes unobtainable due to mental status Exam Narrative: elderly frail Patient is comfortable, NAD HEENT: eyes are clear and none icteric LUNGS: normal respiratory effort HEART: RR S1S2 ABD: BS+, Soft and nontender Lower extremities: no edema SKIN: nonjaundiced Neuro: grossly intact. Objective Data Vital Signs Vital Signs: Vital Signs - 24 hr 11/10/22 17:57 11/10/22 20:00 11/10/22 23:36 Temperature 96.6 F L Pulse Rate 80 80 64 Respiratory Rate 18 18 Blood Pressure 120/41 L Pulse Oximetry 99 98 Oxygen Delivery Room Air 11/11/22 03:40 11/11/22 08:49 11/11/22 08:52 Temperature 97.6 F 97.4 F L Pulse Rate 68 62 68 Respiratory Rate 18 16 Blood Pressure 108/48 L 178/96 H Pulse Oximetry 94 100 Oxygen Delivery 11/11/22 08:00 11/11/22 08:00 11/11/22 11:58 Temperature 97.3 F L 97.9 F Pulse Rate 71 70 Respiratory Rate 20 20 Blood Pressure 153/58 H Pulse Oximetry 99 99 Oxygen Delivery Room Air Intake/Output Intake/
[2022-11-11] MEDS: risperiDONE 0.25 MG TABLET PO (20:12)
[2022-11-11] MEDS: risperiDONE 0.5 MG TABLET PO (20:12)
[2022-11-11] MEDS: MELATONIN 3 MG TABLET PO (20:12)
[2022-11-12] VITALS (8 sets, daily range): BP systolic 128–186; BP diastolic 45–90; PULSE 55–76; RESP 15–18; TEMP 36.7–37.2; O2SAT 95–98
[2022-11-12 08:45] LABS: Hematocrit 35.5 % (37.0-47.0); Hemoglobin 11.2 g/dL (12.0-15.0); Mean Corpuscular HGB Conc 31.5 g/dl (32-36); Mean Corpuscular Hemoglobin 28.5 pg (26-34); Mean Corpuscular Volume 90.3 fl (80-100); Mean Platelet Volume 10.9 fl (7.4-10.4); Platelet Count Result 208 k/mm3 (150-375); Red Blood Count 3.93 M/mm3 (4.2-5.4); Red Cell Distribution Width 14.1 % (11.5-14.5); White Blood Count 4.2 K/mm3 (4.5-10.0)
[2022-11-12 08:56] LABS: Anion Gap 5 mmol/L (8-16); Blood Urea Nitrogen 17 mg/dL (7-17); Calcium 8.1 mg/dL (8.4-10.2); Carbon Dioxide 23 mmol/L (22-30); Chloride 106 mmol/L (98-107); Estimated Glomerular Filt Rate 52; Glucose 88 mg/dL (65-110); Potassium 3.7 mmol/L (3.4-5.0); Sodium 134 mmol/L (137-145)
[2022-11-12] MEDS: busPIRone HCL 5 MG TABLET 15 MG BY MOUTH ×3 (09:59→18:25)
[2022-11-12] MEDS: carvediloL 3.125 MG TABLET PO ×3 (10:00→18:25)
[2022-11-12] MEDS: CHOLECALCIFEROL 1,000 UNITS TABLET 5000 UNITS PO (10:02)
[2022-11-12] MEDS: CITALOPRAM HYDROBROMIDE 10 MG TABLET PO (10:02)
[2022-11-12] MEDS: FAMOTIDINE 20 MG TABLET 40 MG PO (10:02)
[2022-11-12] MEDS: lisinopriL 10 MG TABLET PO (10:03)
[2022-11-12] MEDS: ACETAMINOPHEN 325 MG TABLET 650 MG PO (10:04)
[2022-11-12] MEDS: DICLOFENAC SODIUM 1% 100 GM GEL (*BKC) 1 APPLIC TOPICAL (13:39)
--- NOTE | 2022-11-12 13:48 | PM.DS ---
DS: Admitting Diagnosis Discharge Date 11/12/2022 Admitting Diagnosis Diahrrea and vomiting DS: Discharge Diagnosis Discharge Diagnosis (1) Gastroenteritis: Code(s): K52.9 - Noninfective gastroenteritis and colitis, unspecified Status: Acute Assessment and Plan: EDHPI Narrative: 86 years old white female came [facility] ambulance with 2 episodes of loose stool over 2 hours prior to arrival to the emergency room? Associated with one vomiting patient is asymptomatic.? .? History of dementia. unfortunately patient is quite somnolent and unable to provide any review of symptoms or history, will gently hydrate the patient with IVF, monitor patient kidney function as patient is slightly dehydrated, will encourage PO intake, will monitor patient electrolytes and further recommendation to follow. 11/11/2022 interval history: today patient is little more awake, stats she is hungry, unable to provider detail review of symptoms, still have clear loose BM most likely viral gastroenteritis, will continue to gently hydrate the patient encourage p.o. intake and monitor, will have a PT OT evaluate the and further recommendation to follow. (2) Decreased appetite: Code(s): R63.0 - Anorexia Status: Acute Assessment and Plan: most likely secondary to dementia will increase patient to take p.o. (3) Generalized weakness: Code(s): R53.1 - Weakness Status: Acute Assessment and Plan: most likely secondary dehydration with vomiting and diarrhea will encourage p.o. intake have a PT OT evaluate the patient (4) Dementia: Qualifiers: Dementia behavioral disturbance: without behavioral disturbance Dementia type: unspecified type Qualified Code(s): F03.90 - Unspecified dementia without behavioral disturbance Code(s): F03.90 - Unspecified dementia, unspecified severity, without behavioral disturbance, psychotic disturbance, mood disturbance, and anxiety Status: Acute Assessment and Plan: patient remains clinically stable DS: Summary Hospital Course Reason for hospitalization: Diahrrea and vomiting Narrative: EDHPI Narrative: 86 years old white female came [place] [facility] by ambulance with 2 episodes of loose stool over 2 hours prior to arrival to the emergency room? Associated with one vomiting patient is asymptomatic.? .? History of dementia. unfortunately patient is quite somnolent and unable to provide any review of symptoms or history, will gently hydrate the patient with IVF, monitor patient kidney function as patient is slightly dehydrated, will encourage PO intake,? will monitor patient electrolytes and further recommendation to follow Hospital Course: today patient is little more awake, stats she is hungry, unable to provider detail review of symptoms, still have clear loose BM most likely viral gastroenteritis,? will continue to gently hydrate the patient encourage p.o. intake and monitor, will have a PT OT evaluate the and further recommendation to follow.? Today patient clinically symptoms have improved, will discharge the patient today Time Spent with Patient Time attestation: Total time spent providing and/or coordinating discharge services: Exam Narrative: elderly frail Patient is comfortable, NAD HEENT: eyes are clear and none icteric LUNGS: normal respiratory effort HEART: RR S1S2 ABD: BS+, Soft and nontender Lower extremities: no edema SKIN: nonjaundiced Neuro: grossly intact. DS: Data Data Completed and Pending Labs on day of discharge: Labs from last 24 hours 11/12/22 11/12/22 08:35 08:35 WBC 4.2 L RBC 3.93 L Hgb 11.2 L Hct 35.5 L MCV 90.3 MCH 28.5 MCHC 31.5 L RDW 14.1 Plt Count 208 MPV 10.9 H Sodium 134 L Potassium 3.7 Chloride 106 Carbon Dioxide 23 Anion Gap 5 L BUN 17 Creatinine 1.00 Estim Creat Clear Calc Not Reportable Estimated GFR 52 L Glucose 88 Aftab
[2022-11-12] MEDS: MELATONIN 3 MG TABLET PO (21:19)
[2022-11-12] MEDS: risperiDONE 0.5 MG TABLET PO (21:19)
[2022-11-12] MEDS: risperiDONE 0.25 MG TABLET PO (21:19)
[2022-11-13] VITALS: BP 127/54; PULSE 63; RESP 16; TEMP 36.6; O2SAT 96
== END 2022-11-13 ==
LOC: ANHED 06:34 → ANH3MEDSUR 08:22
PROVIDERS: Admitting Provider Family Medicine; Emergency Provider Emergency Medicine; PCP Family Medicine; Visit Provider Family Medicine
DX: K52.9 Noninfective gastroenteritis and colitis, unspecified (principal); R63.0 Anorexia; R53.1 Weakness; F03.90 Unspecified dementia, unspecified severity, without behavioral disturbance, psychotic disturbance, mood disturbance, and anxiety; F41.9 Anxiety disorder, unspecified; M54.9 Dorsalgia, unspecified; R40.0 Somnolence; F32.A Depression, unspecified; I10 Essential (primary) hypertension; Z20.822 Contact with and (suspected) exposure to COVID-19; G89.29 Other chronic pain; E66.3 Overweight; M17.0 Bilateral primary osteoarthritis of knee; M48.00 Spinal stenosis, site unspecified; Z96.641 Presence of right artificial hip joint; Z90.710 Acquired absence of both cervix and uterus; Z79.1 Long term (current) use of non-steroidal anti-inflammatories (NSAID); Z87.440 Personal history of urinary (tract) infections; Z79.899 Other long term (current) drug therapy; Z82.49 Family history of ischemic heart disease and other diseases of the circulatory system
CPT/HCPCS: 36415; 80048; 80053; 85025; 85027; 87636; 96360; 96361; 99285; A9270; G0378; J7030